=== PATIENT | male | born 1990 | race Caucasian/White ===

== ENCOUNTER → 2016-09-26 | Outpatient (CLI) | payer BC ==
[2016-10-15 12:59] LABS: O&P SOURCE OTHER-STOOL
== END | disposition home or self-care (01) ==
LOC: C.LABSPEC 16:03
PROVIDERS: ATTEND Internal Medicine Gastroenterology
DX: L29.0 Pruritus ani (principal)

== ENCOUNTER → 2016-09-29 | Outpatient (CLI) | payer BC ==
[2016-10-15 16:21] LABS: O&P SOURCE OTHER-STOOL
== END | disposition home or self-care (01) ==
LOC: C.LABSPEC 16:00
PROVIDERS: ATTEND Internal Medicine Gastroenterology
DX: L29.0 Pruritus ani (principal)

== ENCOUNTER → 2016-10-03 | Outpatient (CLI) | payer BC ==
[2016-10-15 12:55] LABS: O&P SOURCE OTHER-STOOL
== END | disposition home or self-care (01) ==
LOC: C.LABSPEC 10:40
PROVIDERS: ATTEND Internal Medicine Gastroenterology
DX: L29.0 Pruritus ani (principal)